=== PATIENT | female | born 1940 | race Caucasian/White ===

== ENCOUNTER → 2017-05-21 | Outpatient (CLI) | payer MEDICARE, OTHER ==
[~2017-05-21] MED LIST: ACET-1966 PO; ASCO-182 PO; ASPI-1471 PO; ASPI-757 PO; BACL-1 PO; CALC-93; CALC250T7 PO; CELE50CA2 PO; CEP500 PO; CHOL500025 PO; CYAN20004; DICL100G39; DICL100G39 TP; FLAX100041 PO; GLUC100026 PO; IBUP-56 PO; NAPR-1043 PO; OXYC-865 PO; OXYC5TAB38 PO; PNEU0.5D3 IM; SALM1CAP3 PO; SIMV-42 PO; VITA400T2 PO
--- NOTE | 2017-05-21 13:39 | RADIOLOGY IMAGING REPORT ---
FACILITY: [facility] PATIENT NAME: Shagufta Eli : 1940 MR: [id number] V: [id number] EXAM DATE: ORDERING PHYSICIAN: RENEA SHERIDAN TECHNOLOGIST: [place] [facility] [place] Shagufta Eli : 1940 Visit/Account:[id number] Date of Sevice: 05/21/2017 Venous Doppler ultrasound right lower extremity Indication: Right leg pain and swelling.. Comparison: None Available Findings: Duplex Doppler and color flow imaging was performed. The common femoral, femoral, and popliteal veins are all patent and compressible with normal Doppler wave forms. There are normal responses to augme ntation. The posterior tibial and peroneal veins are patent in the calf. The proximal greater saphenous vein is also normal. IMPRESSION: No evidence of deep venous thrombosis of the right lower extremity. Report Dictated By: Yakov Khanna MD at 05/21/2017 1:34 PM Report E-Signed By: Yakov Khanna MD at 05/21/2017 1:35 PM WSN:[id number]
== END ==
LOC: US 12:38
PROVIDERS: ATTEND Nurse Practitioner Family
DX: M79.661 Pain in right lower leg (principal)

== ENCOUNTER → 2017-05-21 | Outpatient (REF) | payer MEDICARE, OTHER ==
[2017-05-21 11:50] LABS: PLATELET COUNT, AUTOMATED 273 K/uL (150-450)
== END ==
PROVIDERS: ATTEND Nurse Practitioner Family
DX: R60.9 Edema, unspecified (principal)
CPT/HCPCS: 82040; 82247; 82310; 82374; 82435; 82565; 82947; 84075; 84132; 84155; 84295; 84450; 84460; 84520; 85025; 85379

== ENCOUNTER → 2017-08-25 | Outpatient (CLI) | payer MEDICARE, OTHER ==
--- NOTE | 2017-08-25 10:49 | RADIOLOGY IMAGING REPORT ---
FACILITY: [facility] [place] PATIENT NAME: Shagufta Eli : 1940 MR: [id number] V: [id number] EXAM DATE: ORDERING PHYSICIAN: SHARON CAPELLAN TECHNOLOGIST: Location: [facility] Patient: Shagufta Eli : 1940 Visit/Account:[id number] Date of Sevice: 08/25/2017 DEXA Scan Clinical history: Post menopausal. Comparison: DEXA scan from 07/27/2007. LUMBAR SPINE: The bone mineral density (BMD) measured from L1-L4 correlates with a Z-score of 2.9 and a T-score of 0.9 which is Normal as defined by the World Health Organization. The corresponding risk of fracture in the lumbar spine is Not increased compared with a young adult reference population. This value rios s decreased by 5.5 % since the prior study. More than 5% change is considered significant. HIP: Bone mineral density (BMD) measured in the RIGHT total hip region correlates with a Z-score 1.3 and a T-score of -0.8 which is normal as defined by the World Health Organization. The corresponding risk of fracture in the hip is 1-2 t imes increased compared to a young adult reference population. Pulmonary density left femoral neck -0.7 Bone mineral density (BMD) measured in the Femoral Neck region measures 0.946 g/cm?. IMPRESSION: 1. Lumbar spine: Normal. There has been 5.5% decrease in the bone mineral density since the previou s exam. 2. Right Total Hip: Normal. The right hip was not imaged previously exam. 3. Femoral Neck: Bone Mineral Density is 0.946 g/cm? The next DEXA scan of this patient should include the following sites: L1-L4 and the right hip. FRAX? WHO Fracture Risk Assessment Tool link: <http://www.shef.ac.uk/FRAX/tool.jsp?locationValue=9> PLEASE NOTE: 1) The World Health Organization defines low BMD as follows: T-score Normal > -1 Osteopenia < -1 and > -2.5 Osteoporosis < -2.5 without fractures Established osteoporosis < -2.5 with fractures 2) In general, you may wish to consider: Diagnosis Treatment Follow-up DEXA Normal BMD Prevention 2-3 years Osteopenia Prevention/therapy 1-2 years Osteoporosis Therapy Yearly 3) Fracture risk estimated from the T-score is more accurate for vertebral fractures (often spontane ous) than for hip fractures. Report Dictated By: Joanne Buenrostro MD at 08/25/2017 10:44 AM Report E-Signed By: Joanne Buenrostro MD at 08/25/2017 10:46 AM WSN:[email or web address]
--- NOTE | 2017-08-25 11:44 | RADIOLOGY IMAGING REPORT ---
FACILITY: PATIENT NAME: SAHIL ABBOTT : [id number] MR: [id number] V: [id number] EXAM DATE: [id number] ORDERING PHYSICIAN: SHARON CAPELLAN TECHNOLOGIST: Sri Vickers PROCEDURE:BILATERAL DIGITAL SCREENING MAMMOGRAM WITH CAD ASSISTED INTERPRETATION & 3D TOMOSYNTHESIS COMPARISON:Prior mammograms 07/31/16, 07/31/15, 07/28/14, 07/27/13, 07/26/12, 07/25/11. INDICATIONS:screening FINDINGS: Moderately dense fibroglandular tissue is seen throughout the breasts. The parenchymal pattern has remained stable allowing for difference in mammographic technique & patient positioning. There is no evidence of malignant appearing mass, malignant appearing calcifications or other secondary sign of malignancy in either breast. DIAGNOSTIC CATEGORY 1--NEGATIVE. RECOMMENDATIONS: ROUTINE MAMMOGRAM AND CLINICAL EVALUATION. IMPRESSION: BIRADS 1: Negative. No significant abnormality is seen. Dictated by: Joanne Buenrostro M.D. on 08/25/2017 at 11:06 Transcribed by: DARIEL on 08/25/2017 at 11:22 Approved by: Joanne Buenrostro M.D. on 08/25/2017 at 11:43 [facility]
== END ==
LOC: MAMO 01:16
PROVIDERS: ATTEND Family Medicine
DX: Z13.820 Encounter for screening for osteoporosis (principal); Z12.31 Encounter for screening mammogram for malignant neoplasm of breast; Z78.0 Asymptomatic menopausal state
CPT/HCPCS: 77063; 77067; 77080

== ENCOUNTER 2017-12-30 15:34 | Emergency (ER) | payer MEDICARE, OTHER ==
--- NOTE | 2017-12-30 15:39 | ER Report ---
History and Physical Time Seen By MD: 15:39 HPI/ROS CHIEF COMPLAINT: Chest pain HISTORY OF PRESENT ILLNESS: This is a 77-year-old female who presents to the emergency department for chest pain. Patient states over the last couple weeks she's had intermittent chest pain and last night around midnight while she was sleeping the chest pain woke her up, has been constant since. No nausea or vomiting. No diaphoresis. No visual changes. No diarrhea. No fevers or chills. Patient does have a history of acid reflux, she is taken Prilosec which has seemed to help, she came concerned that she does have a family history of cardiac disease and she does have a history of hypercholesterolemia. Patient decided to come in for evaluation. The chest pain does not radiate. REVIEW OF SYSTEMS: Constitutional: No fever, no chills. Eyes: No discharge. ENT: No sore throat. Cardiovascular: As above. Respiratory: No cough, no shortness of breath. Gastrointestinal: No abdominal pain, no vomiting. Genitourinary: No hematuria. Musculoskeletal: No back pain. Skin: No rashes. Neurological: No headache. Allergies: Coded Allergies: Penicillins (Verified Allergy, Mild, HIVES, 12/23/15) sulfamethoxazole (Verified Allergy, Unknown, UNKNOWN, 10/22/16) EHR Conversion trimethoprim (Verified Allergy, Unknown, UNKNOWN, 10/22/16) EHR Conversion Home Meds Active Scripts Simvastatin (ZOCOR) 20 Mg Tablet, 1 TAB PO DAILY, #90 TAB 4 Refills Prov:SHARON CAPELLAN MD 10/27/17 Reported Medications Aspirin (ASPIR 81) 81 Mg Tablet.dr, 1 TAB PO QDAY, TAB 01/19/17 Vitamin E Acid Succinate (VITAMIN E) 400 Unit Tablet, 1 TAB PO BID 01/19/17 Ascorbic Acid (VITAMIN C) 500 Mg Tablet, 1 TAB PO BID, TAB 01/19/17 Cholecalciferol (Vitamin D3) (VITAMIN D3) 5,000 Unit Tablet, 1 TAB PO DAILY 01/19/17 Calcium Citrate (CALCIUM CITRATE) 250 Mg Tablet, 1500 MG PO BID 01/19/17 Diclofenac Sodium 1% Gel (VOLTAREN 1% GEL) 100 Gm Gel..gram., TP PRN 10/22/16 Glucosamine Sulfate 2KCL (GLUCOSAMINE) Unknown Strength Tablet, PO DAILY 10/22/16 Cyanocobalamin (Vitamin B-12) (Vitamin B-12) Unknown Strength Tablet, DAILY 10/22/16 Gallant Oil/Stella-3 Fatty Acids (SALMON OIL 1,000 MG SOFTGEL) Unknown Strength Capsule, PO BID, CAPSULE 10/22/16 Past Medical/Surgical History The patient has a past medical and surgical history of hypercholesterolemia, systemic arthritis, osteoporosis, stress fracture in the feet, wears glasses, skin cancer, hysterectomy, multiple orthopedic surgeries secondary to arthritis. Reviewed Nurses Notes: Yes Hx Smoking: No Smoking Status: Never Smoker Exposure to Second Hand Smoke?: No Hx Alcohol Use: No Constitutional Vital Sign - Last 24 Hours 12/30/17 12/30/17 12/30/17 12/30/17 15:38 15:39 16:04 16:34 Temp 98.5 Pulse 94 84 82 Resp 20 14 B/P (MAP) 129/86 129/86 (100) Pulse Ox 92 97 100 O2 Delivery Room Air 12/30/17 12/30/17 16:44 16:49 Pulse 82 Resp 10 B/P (MAP) 109/75 (86) Pulse Ox 95 Physical Exam General Appearance: The patient is alert, has no immediate need for airway protection and no signs of toxicity. Eyes: Pupils equal and round no pallor or injection. ENT, Mouth: Mucous membranes are moist. Respiratory: There are no retractions, lungs are clear to auscultation. Cardiovascular: Regular rate and rhythm, no murmurs, clicks or rubs. Gastrointestinal: Abdomen is soft and non tender, no masses, bowel sounds normal. Neurological: Alert and oriented 4. Moving all extremity is. Following all commands. No focal neuro deficits. Skin: Warm and dry, no rashes. Musculoskeletal: Neck is supple non tender. Extremities are nontender, nonswollen and have full range of motion. DIFFERENTIAL DIAGNOSIS: After history and physical exam differential diagnosis was considered for chest pain including but not limited to myocardial ischemia, pericarditis pulmonary embolus, chest wall pain, pleural inflammation and pulmonary infectious causes. Medical Decision Making Data Points Result Diagram: 12/30/17 1546 12/30/17 1546 Laboratory Hematology Test 12/30/17 15:46 Red Blood Count 4.30 M/uL (4.17-5.56) Mean Corpuscular Volume 91.9 fL (80.0-96.0) Mean Corpuscular Hemoglobin 30.7 pg (26.0-33.0) Mean Corpuscular Hemoglobin Concent 33.5 g/dL (32.0-36.0) Red Cell Distribution Width 13.8 % (11.5-14.5) Mean Platelet Volume 8.0 fL (7.2-11.1) Neutrophils (%) (Auto) 57.1 % (39.4-72.5) Lymphocytes (%) (Auto) 31.7 % (17.6-49.6) Monocytes (%) (Auto) 7.4 % (4.1-12.4) Eosinophils (%) (Auto) 2.8 % (0.4-6.7) Basophils (%) (Auto) 1.0 % (0.3-1.4) Nucleated RBC Relative Count (auto) 0.0 /100WBC Neutrophils # (Auto) 4.1 K/uL (2.0-7.4) Lymphocytes # (Auto) 2.3 K/uL (1.3-3.6) Monocytes # (Auto) 0.5 K/uL (0.3-1.0) Eosinophils # (Auto) 0.2 K/uL (0.0-0.5) Basophils # (Auto) 0.1 K/uL (0.0-0.1) Nucleated RBC Absolute Count (auto) 0.00 K/uL Sodium Level 136 mmol/L (137-145) Potassium Level 4.1 mmol/L (3.5-5.0) Chloride Level 103 mmol/L (98-107) Carbon Dioxide Level 25 mmol/L (22-31) Blood Urea Nitrogen 14 mg/dl (7-18) Creatinine 0.70 mg/dl (0.52-1.04) Glomerular Filtration Rate Calc > 60.0 Random Glucose 99 mg/dl (75-110) Calcium Level 9.2 mg/dl (8.4-10.2) Total Bilirubin 0.3 mg/dl (0.2-1.3) Aspartate Amino Transf (AST/SGOT) 37 U/L (0-35) Alanine Aminotransferase (ALT/SGPT) 35 U/L (0-56) Alkaline Phosphatase 73 U/L (0-126) Troponin I < 0.012 ng/ml Total Protein 7.8 g/dl (6.3-8.2) Albumin 4.2 g/dl (3.5-5.0) Chemistry Test 12/30/17 15:46 White Blood Count 7.2 k/uL (4.5-11.0) Red Blood Count 4.30 M/uL (4.17-5.56) Hemoglobin 13.2 g/dL (12.0-16.0) Hematocrit 39.5 % (34.0-47.0) Mean Corpuscular Volume 91.9 fL (80.0-96.0) Mean Corpuscular Hemoglobin 30.7 pg (26.0-33.0) Mean Corpuscular Hemoglobin Concent 33.5 g/dL (32.0-36.0) Red Cell Distribution Width 13.8 % (11.5-14.5) Platelet Count 278 K/uL (150-450) Mean Platelet Volume 8.0 fL (7.2-11.1) Neutrophils (%) (Auto) 57.1 % (39.4-72.5) Lymphocytes (%) (Auto) 31.7 % (17.6-49.6) Monocytes (%) (Auto) 7.4 % (4.1-12.4) Eosinophils (%) (Auto) 2.8 % (0.4-6.7) Basophils (%) (Auto) 1.0 % (0.3-1.4) Nucleated RBC Relative Count (auto) 0.0 /100WBC Neutrophils # (Auto) 4.1 K/uL (2.0-7.4) Lymphocytes # (Auto) 2.3 K/uL (1.3-3.6) Monocytes # (Auto) 0.5 K/uL (0.3-1.0) Eosinophils # (Auto) 0.2 K/uL (0.0-0.5) Basophils # (Auto) 0.1 K/uL (0.0-0.1) Nucleated RBC Absolute Count (auto) 0.00 K/uL Glomerular Filtration Rate Calc > 60.0 Calcium Level 9.2 mg/dl (8.4-10.2) Total Bilirubin 0.3 mg/dl (0.2-1.3) Aspartate Amino Transf (AST/SGOT) 37 U/L (0-35) Alanine Aminotransferase (ALT/SGPT) 35 U/L (0-56) Alkaline Phosphatase 73 U/L (0-126) Troponin I < 0.012 ng/ml Total Protein 7.8 g/dl (6.3-8.2) Albumin 4.2 g/dl (3.5-5.0) EKG/Imaging EKG Interpretation 12 lead EKG: Time EKG 1556. Rhythm: Normal sinus rhythm, ventricular rate 84 bpm. [place]: normal QRS: normal ST segments: No ST depression or elevation identified. No previous EKGs for comparison. Imaging Location: [facility] - [place], [place] Patient: Shagufta Eli : 1940 Visit/Account:[id number] Date of Sevice: 12/30/2017 EXAMINATION: Chest radiographs 2 views HISTORY: Chest pain on and off for two weeks, extreme pain last night. COMPARISON: 11/28/2010. FINDINGS: PA and lateral views of the chest are submitted. Lines/tubes: None. Lungs/pleura: No focal consolidation or pleural effusion. Pulmonary vascularity is within normal limits. No evidence of pneumothorax. Heart: Stable normal heart size. Mediastinum: Several calcified mediastinal and hilar lymph nodes, unchanged compared with the previous exam. Bony structures/body wall: Anterior fusion hardware in the cervical spine. Multilevel disc degenerative changes in the spine. IMPRESSION: No radiographic evidence of acute cardiopulmonary disease. Several calcified mediastinal and hilar lymph nodes, unchanged compared with the prior exam in 2010. Report Dictated By: Michael Landon MD at 12/30/2017 4:20 PM Report E-Signed By: Michael Landon MD at 12/30/2017 4:23 PM WSN:[facility] ED Course/Re-evaluation Clinical Indication for ER IV: Hydration, IV Access ED Course The patient was admitted to a room. A history and physical were obtained. Differential diagnoses were considered. An IV was started. CBC, CMP and troponin were obtained. A 500 mL normal saline bolus was given. Lab studies unremarkable. Negative troponin. Two-view chest x-ray negative for any acute cardiopulmonary process. EKG showing normal sinus rhythm. No aspirin was given at this time, the patient had taken 325 mg 2 at home. Patient was given a GI cocktail, patient states she had significant relief. I reviewed the laboratory results and imaging results with the patient. I did tell her that I suspect this is likely an acid reflux, I did recommend following up with her primary care provider, she does have a follow-up appointment scheduled within 1 week. I did tell her that she can discuss options for acid reflux with her primary care provider, she may also elect to talk to Dr. Frazier for an upper GI looking at possible ulcerations as the patient does have a history of ulcers. I don't feel that this is an active ulcer at this time. The patient was understanding. Patient was in agreement with this chronic care and discharged home. She was also encouraged to return to the emergency department for any other concerns or worsening symptoms. Decision to Disposition Date: Dec 30, 2017 Decision to Disposition Time: 17:16 Depart Departure Latest Vital Signs Vital Signs Date Time Temp Pulse Resp B/P (MAP) Pulse Ox O2 Delivery O2 Flow Rate FiO2 12/30/17 16:49 82 10 95 12/30/17 16:44 109/75 (86) 12/30/17 15:38 98.5 Room Air Impression: Primary Impression: Chest pain Additional Impression: Acid reflux disease Condition: Improved Disposition: HOME OR SELF-CARE Referrals: SHARON CAPELLAN MD (PCP) 1 Week Patient Instructions: Chest Pain (ED), Gastroesophageal Reflux Disease (ED) Additional Instructions: Your laboratory studies, EKG and chest x-ray did not show any abnormalities today. I suspect the chest pain. Experiencing is from acid reflux. Please keep your appointment with Dr. Capellan one week for reevaluation at which time you can discuss options for acid reflux one of which may include a follow- up appointment with Dr. Frazier for an upper endoscopy. Continue with your current medications. Consider elevating the head of your bed for the next several days to see if this will help with some of the discomfort. Drink plenty of water. Get plenty of rest. Return to the emergency department for any concerns or worsening symptoms. Problem Qualifiers Primary Impression: Chest pain Chest pain type: unspecified Qualified Codes: R07.9 - Chest pain, unspecified Additional Impression: Acid reflux disease Esophagitis presence: esophagitis presence not specified Qualified Codes: K21.9 - Gastro-esophageal reflux disease without esophagitis MAMADOU FOSTER [employer]ICULTURAL RESEARCHER-BC Dec 30, 2017 15:39
[2017-12-30] MEDS ORDERED: NS(*) 0.9% 500 ML BAG 500 ML IV ONE (15:54)
[2017-12-30] MEDS ORDERED: ASPIRIN 81 MG CHEW PO ONE (15:55)
[2017-12-30 16:02] LABS: PLATELET COUNT, AUTOMATED 278 K/uL (150-450)
--- NOTE | 2017-12-30 16:11 | EKG ---
[place] [facility] [place] NAME: SAHIL ABBOTT : [id number] MR: [id number] V: [id number] EXAM DATE: ORDERING PHYSICIAN: MAMADOU FOSTER TECHNOLOGIST: MIRYAM Test Reason : CP Blood Pressure : / mmHG Vent. Rate : 084 BPM Atrial Rate : 084 BPM P-R Int : 166 ms QRS Dur : 086 ms QT Int : 384 ms P-R-T Axes : 058 057 060 degrees QTc Int : 453 ms Normal sinus rhythm Normal ECG No previous ECGs available Confirmed by Anton Mabry ([id number]) on 12/30/2017 8:00:36 PM Referred By: MAMADOU Confirmed By:Anton Villeda
--- NOTE | 2017-12-30 16:28 | RADIOLOGY IMAGING REPORT ---
FACILITY: [facility] PATIENT NAME: Shagufta Eli : 1940 MR: [id number] V: [id number] EXAM DATE: ORDERING PHYSICIAN: MAMADOU FOSTER TECHNOLOGIST: Location: [facility] - [place] Patient: Shagufta Eli : 1940 Visit/Account:[id number] Date of Sevice: 12/30/2017 EXAMINATION: Chest radiographs 2 views HISTORY: Chest pain on and off for two weeks, extreme pain last night. COMPARISON: 11/28/2010. FINDINGS: PA and lateral views of the chest are submitted. Lines/tubes: None. Lungs/pleura: No focal consolidation or pleural effusion. Pulmonary vascularity is within normal li mits. No evidence of pneumothorax. Heart: Stable normal heart size. Mediastinum: Several calcified mediastinal and hilar lymph nodes, unchanged compared with the previo us exam. Bony structures/body wall: Anterior fusion hardware in the cervical spine. Multilevel disc degenera tive changes in the spine. IMPRESSION: No radiographic evidence of acute cardiopulmonary disease. Several calcified mediastinal and hilar lymph nodes, unchanged compared with the prior exam in 2010. Report Dictated By: Michale Landon MD at 12/30/2017 4:20 PM Report E-Signed By: Michael Landon MD at 12/30/2017 4:23 PM WSN:[email or web address]
[2017-12-30] MEDS ORDERED: LIDOCAINE 2% VISC SLN 15ML UDC PO ONE (16:30)
[2017-12-30] MEDS ORDERED: MAG HYD/AL HYD/SIMETH 30ML UDC PO ONE (16:30)
[2017-12-30 16:44] VITALS: BP 109/75
== END 2017-12-30 17:30 | disposition home or self-care (01) ==
LOC: ER 16:07
DX: K21.9 Gastro-esophageal reflux disease without esophagitis (principal)
CPT/HCPCS: 71046; 84484; 85025; 93005; 96360; 99284; A9270; J7040; 82040; 82247; 82310; 82374; 82435; 82565; 82947; 84075; 84132; 84155; 84295; 84450; 84460; 84520

== ENCOUNTER → 2018-05-10 | Outpatient (CLI) | payer MEDICARE, OTHER ==
[~2018-05-10] MED LIST changes: +RANI-318 PO
--- NOTE | 2018-05-10 15:48 | EKG ---
FACILITY: [facility] PATIENT NAME: SAHIL ABBOTT : [id number] MR: [id number] V: [id number] EXAM DATE: ORDERING PHYSICIAN: EDWIN SHAFFER TECHNOLOGIST: ORTEGA Test Reason : PRE OP Blood Pressure : / mmHG Vent. Rate : 081 BPM Atrial Rate : 081 BPM P-R Int : 170 ms QRS Dur : 080 ms QT Int : 384 ms P-R-T Axes : 055 076 056 degrees QTc Int : 446 ms Sinus rhythm Nonspecific ST findings lateral leads Confirmed by SANYA VELA ([id number]) on 05/10/2018 8:41:56 PM Referred By: DEENA Confirmed By:SANYA VELA
== END ==
LOC: RESP 13:43
PROVIDERS: ATTEND Nurse Practitioner Family
DX: Z01.810 Encounter for preprocedural cardiovascular examination (principal)
CPT/HCPCS: 93005

== ENCOUNTER → 2018-08-27 | Outpatient (CLI) | payer MEDICARE, OTHER ==
--- NOTE | 2018-08-27 15:46 | RADIOLOGY IMAGING REPORT ---
FACILITY: [facility] PATIENT NAME: SAHIL ABBOTT : [id number] MR: [id number] V: [id number] EXAM DATE: [id number] ORDERING PHYSICIAN: SHARON CAPELLAN TECHNOLOGIST: Lottie Brush PROCEDURE: BILATERAL DIGITAL SCREENING MAMMOGRAM WITH CAD ASSISTED INTERPRETATION & 3D TOMOSYNTHESIS. REASON FOR STUDY: Screening. FAMILY HISTORY OF BREAST CANCER: Paternal grandmother, sister and 2 nieces. BREAST PROCEDURES/TREATMENTS: Benign surgical biopsy of the Right breast. COMPARISON: 08/25/17, 07/31/16, 07/31/15, 07/28/14, 07/27/13, 07/26/12. VIEWS OBTAINED: Bilateral 2D & 3D full field CC & MLO projections. BREAST DENSITY: There are scattered areas of fibroglandular density throughout the breasts. MAMMOGRAM FINDINGS: The parenchymal pattern has remained stable allowing for difference in mammographic technique & patient positioning. IMPRESSION: BIRADS 1: Negative. DIAGNOSTIC CATEGORY 1--NEGATIVE. RECOMMENDATIONS: ROUTINE MAMMOGRAM AND CLINICAL EVALUATION. Dictated by: Joanne Buenrostro M.D. on 08/27/2018 at 10:29 Transcribed by: DARIEL on 08/27/2018 at 11:21 Approved by: Joanne Buenrostro M.D. on 08/27/2018 at 15:42 [facility]
== END ==
LOC: MAMO 00:42
PROVIDERS: ATTEND Family Medicine
DX: Z12.31 Encounter for screening mammogram for malignant neoplasm of breast (principal); Z80.3 Family history of malignant neoplasm of breast
CPT/HCPCS: 77063; 77067

== ENCOUNTER → 2018-09-16 | Outpatient (CLI) | payer MEDICARE, OTHER ==
--- NOTE | 2018-09-16 12:40 | RADIOLOGY IMAGING REPORT ---
FACILITY: [facility] [place] PATIENT NAME: Shagufta Eli : 1940 MR: [id number] V: [id number] EXAM DATE: ORDERING PHYSICIAN: SHARON CAPELLAN TECHNOLOGIST: Location: [facility] Patient: Shagufta Eli : 1940 Visit/Account:[id number] Date of Sevice: 09/16/2018 CHEST PA LAT Indication: calcification Comparison: Chest x-ray 12/30/2017. Findings: Lungs: Clear. Mediastinum/pulmonary vasculature: Numerous calcified mediastinal lymph nodes are seen, in the right and left hilum, subcarinal, and right paratracheal space. Overall no change from the prior study. T he heart size is normal. Bones/soft tissues: Mild scoliosis seen in the thoracic spine. IMPRESSION: 1. Clear lungs. 2. Numerous calcified mediastinal lymph nodes, unchanged from the prior study. Report Dictated By: José Manuel Valle at 09/16/2018 12:31 PM Report E-Signed By: José Manuel Valle at 09/16/2018 12:32 PM WSN:[email or web address]
== END ==
LOC: RAD 09:40
PROVIDERS: ATTEND Family Medicine
DX: I89.8 Other specified noninfective disorders of lymphatic vessels and lymph nodes (principal)
CPT/HCPCS: 71046